=== PATIENT | female | born 2005 | race Caucasian/White ===

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

== ENCOUNTER 2023-06-14 21:48 | Emergency (ER) | payer MEDICAID, OTHER ==
[~2023-06-14] VITALS: Ht 157.5 cm; Wt 57.2 kg
[~2023-06-14 21:48] MED LIST: HYDR-3917 PO; IBUP-1969 PO; ONDA8TAB60 PO
[2023-06-14 22:12] VITALS: BP_SYST 117; PULSE 86; RESP 17; TEMP 98.1; O2SAT 99
[2023-06-14 22:27] VITALS: BP_SYST 117; PULSE 86; RESP 17; TEMP 98.1; O2SAT 99
[2023-06-14] MEDS ORDERED: IBUP-1969 PO (23:01)
== END 2023-06-14 23:16 | disposition home or self-care (01) ==
LOC: SED 21:48
DX: S69.91XA Unspecified injury of right wrist, hand and finger(s), initial encounter (principal); Z79.899 Other long term (current) drug therapy; W22.8XXA Striking against or struck by other objects, initial encounter; Y93.89 Activity, other specified; Y92.89 Other specified places as the place of occurrence of the external cause; Y99.8 Other external cause status
CPT/HCPCS: 99283